=== PATIENT | female | born 1995 | race African-American/Black ===

== ENCOUNTER 2017-01-24 17:18 | Observation (INO) | payer MEDICAID, OTHER ==
[~2017-01-24] VITALS: Ht 177.8 cm; Wt 130.2 kg
[2017-01-24] MEDS ORDERED: PREN-88 PO (18:28)
[2017-01-24] MEDS ORDERED: OCD PO (18:29)
[2017-01-24] MEDS ORDERED: ONDANSETRON HCL 4MG/2ML VIAL IV NR (18:30)
[2017-01-24] MEDS ORDERED: FOLI-43 PO (18:30)
[2017-01-24] MEDS ORDERED: LACTATED RINGERS 1,000 ML IV SCH (18:30)
[2017-01-24] MEDS ORDERED: FERR-63 PO (18:31)
== END 2017-01-24 20:40 | disposition home or self-care (01) ==
LOC: L&D 17:18
PROVIDERS: ADMIT Obstetrics & Gynecology; ATTEND Obstetrics & Gynecology
DX: O21.2 Late vomiting of pregnancy (principal); Z3A.38 38 weeks gestation of pregnancy
CPT/HCPCS: 36415; 80051; 96360; 96361; G0378; J7120